=== PATIENT | male | born 1980 | race Caucasian/White ===

== ENCOUNTER 2017-01-16 21:00 | Emergency (ER) | payer SELFPAY ==
[~2017-01-16] VITALS: Ht 185.4 cm; Wt 102.3 kg
--- OUTSIDE RECORDS SUMMARY | 2017-01-16 21:03 | XMS REPORT | Continuity of Care Document ---
Author Author [facility] Organization [facility] Address Unknown Phone Unavailable Support Name Relationship Address Phone CLIENT, BILLING Caregiver Unknown Unavailable JONATHAN ALEXIS Next Of Kin [address] [place] [phone] Insurance Providers Guarantor Lauro Alexis Address [address] [place] [address] Email DENIED/NO TO PT [place] Payer Workers Compensation Subscriber's Name Lauro Alexis Relationship 18 Self Problems Active Problems Medical Problem Onset Date Status Depression Unknown Acute Past Problems Medical Problem Onset Date Contusion of ankle, right Unknown Contusion of foot, right Unknown Medications Current Home Medications Medication Dose Units Route Directions Days Qty Instructions Start Date No Routine Meds 02/16/15 Social History Social History Problem Response Recorded Date/Time Onset Date Status Hx Alcohol Use Y REPORTS EVERY OTHER DAY 03/05/2016 1:45am Not Applicable Not Applicable Tobacco Usage smoke 02/16/2015 1:13pm Not Applicable Not Applicable Hospital Discharge Instructions Current inpatient/outpatient. Discharge instructions are currently unavailable. Plan of Care Current inpatient/outpatient. The plan of care is currently unavailable Functional Status No functional status results. Allergies, Adverse Reactions, Alerts No known allergies. Immunizations Query Response on File Recorded Date/Time Hx Influenza Vaccination No 02/16/15 12:50pm Hx Influenza Vaccination No 02/16/15 12:50pm Tdap Vaccine Hx UNKNOWN 03/05/16 1:42am Vital Signs Acute Vital Signs Vital Response Date/Time Temperature (Fahrenheit) 98.4 deg F (96.8 - 99.1) 03/05/2016 1:39am Temperature (Calculated Celsius) 36.59782 degrees C (36.0 - 37.3) 03/05/2016 1:39am Pulse Rate (adult) 84 bpm (60 - 100) 03/05/2016 3:08am Respiratory Rate 17 breaths/min (10 - 20) 03/05/2016 3:08am O2 Sat by Pulse Oximetry 98 % (90 - 100) 03/05/2016 3:08am Blood Pressure 105/56 mm Hg 03/05/2016 3:08am Height (Feet) 6 feet 03/05/2016 1:39am Height (Inches) 1.00 inches 03/05/2016 1:39am Weight (Kilograms) 99.900 kg 03/05/2016 1:39am Body Mass Index (BMI) 29.0 03/05/2016 1:39am Results No known relevant diagnostic tests, laboratory data and/or discharge summary. Procedures No known history of procedures. Encounters Encounter Location Arrival/Admit Date Discharge/Depart Date Attending Provider Registered Referred [facility] 03/05/16 3:15am CLIENT, BILLING Departed Emergency Room [facility] 03/05/16 1:36am 03/05/16 3: 13am JESSICA MCCLOUD MD
[2017-01-16 21:20] VITALS: BP 121/60
[2017-01-16] MEDS: LIDOCAINE 1% (XYLOCAINE) 20 ML VIAL INJ ONE (21:34)
[2017-01-16] MEDS: BACITRACIN OINTMENT 0.9 GM PACKET TOP ONE (21:50)
[2017-01-16] MEDS: TETANUS, DIPTHERIA, PERTUSSIS (ADACELL) VACCINE 0.5 ML VIAL IM ONE (21:51)
== END 2017-01-16 22:02 | disposition home or self-care (01) ==
LOC: ED 21:01
DX: S71.112A Laceration without foreign body, left thigh, initial encounter (principal); S81.012A Laceration without foreign body, left knee, initial encounter; W29.3XXA Contact with powered garden and outdoor hand tools and machinery, initial encounter; Y92.009 Unspecified place in unspecified non-institutional (private) residence as the place of occurrence of the external cause
CPT/HCPCS: 12005; 90471; 90715; 99282; 99283

== ENCOUNTER 2017-01-19 22:19 | Emergency (ER) | payer SELFPAY ==
[~2017-01-19] VITALS: Ht 185.4 cm; Wt 102.3 kg
[2017-01-19 22:31] VITALS: BP 127/68
[2017-01-19] MEDS ORDERED: ED- AMOXICILLIN/CLAVULONATE 875MG-125MG (AUGMENTIN) 3 TABLETS/BTL PO ONE (22:45)
[2017-01-19] MEDS ORDERED: AMOX1TAB12 PO (23:16)
--- NOTE | 2017-01-20 08:05 | Diagnostic Imaging Report ---
INDICATION: Chainsaw injury. COMPARISON: None FINDINGS: Four views of the left knee are obtained. No acute fracture, malalignment or osseous destructive process is seen. No radiopaque foreign bodies are demonstrated. The joint spaces are preserved. Soft tissues appear unremarkable. IMPRESSION: Negative left knee Dictated by: Dictated on workstation # [id number]
== END 2017-01-19 23:22 | disposition home or self-care (01) ==
LOC: ED 22:20
DX: S81.012A Laceration without foreign body, left knee, initial encounter (principal); L03.116 Cellulitis of left lower limb; M25.562 Pain in left knee; W20.8XXA Other cause of strike by thrown, projected or falling object, initial encounter
CPT/HCPCS: 73564; 99282; 99283

== ENCOUNTER → 2017-01-26 | Outpatient (CLI) | payer SELFPAY ==
[~2017-01-26] VITALS: Ht 185.4 cm; Wt 95.3 kg
[~2017-01-26] MED LIST: AMOX1TAB12 PO
[2017-01-26 22:28] VITALS: BP 140/71
== END ==
LOC: EUOP 22:08
PROVIDERS: ATTEND Emergency Medicine
DX: S71.112D Laceration without foreign body, left thigh, subsequent encounter (principal); S81.012D Laceration without foreign body, left knee, subsequent encounter; W29.3XXD Contact with powered garden and outdoor hand tools and machinery, subsequent encounter